=== PATIENT | female | born 1940 | race Hispanic/Latino ===

== ENCOUNTER 2022-11-03 12:01 | Emergency (ER) | payer SELFPAY ==
[~2022-11-03] VITALS: Ht 154.9 cm; Wt 78.0 kg
== END 2022-11-03 12:46 | disposition home or self-care (01) ==
LOC: ER 12:06
DX: M72.2 Plantar fascial fibromatosis (principal); I10 Essential (primary) hypertension; M81.0 Age-related osteoporosis without current pathological fracture
CPT/HCPCS: 99282